=== PATIENT | female | born 1930 | race Caucasian/White ===

== ENCOUNTER 2017-04-25 23:50 | Emergency (ER) | payer MEDICARE, OTHER ==
[~2017-04-25] VITALS: Ht 162.6 cm; Wt 49.3 kg
[~2017-04-25 23:50] MED LIST: ANUCORT HC25 MG REC; BENTYL 10MG10 MG/CAP PO; BENTYL 20MG TAB20 MG PO; BIAXIN 500MG T500 MG PO; CIPRO 500MG TA500 MG PO; COUMADIN 22.5 MG/TAB; COUMADIN 22.5 MG/TAB PO; COUMADIN 4MG4 MG/TAB PO; COUMADIN 5MG5 MG/TAB PO; FLAGYL500 MG PO; GAVISCON500 MG PO; KAPIDEX; LISINOPRIL20 MG PO; MAALOX ANTACID1 TAB PO; MULTAQ400 MG PO; NEXIUM 40MG40 MG PO; PRILOSEC 20MG20 MG PO; PRILOSEC10 MG PO; PRINIVIL5 MG PO; PRINZIDE 12.5 M1 TA1 PO; PROMETHAZINE12.5 M5 PO; TOPROL XL 25MG25 MG PO; ULTRAM 50MG TAB50 MG PO; ZESTRIL 20MG TA20 MG PO; ZOCOR 40MG40 MG PO; ZOCOR40 MG PO; ZOFRAN 4MG T4 MG/TAB PO; ZOFRAN ODT4 MG PO; ZOVIRAX400 MG PO
[2017-04-25 23:53] VITALS: TEMP 97.4
[2017-04-26] MEDS ORDERED: FLAGYL500 MG PO (00:31)
[2017-04-26] MEDS ORDERED: LIPITOR 10MG10 MG PO (00:31)
[2017-04-26 00:33] LABS: BASO # 0.1 (0.0-0.2); BASO % 0.8 % (0.0-2.0); EOS # 0.1 (0.0-0.7); EOS % 0.8 % (0-4.0); GRAN # 4.5 (1.4-6.5); GRAN % 60.9 % (42.2-75.2); HEMATOCRIT 42.3 % (37.0-47.0); HEMOGLOBIN 14.4 g/dl (12.5-16.0); LYMPH # 2.1 (1.2-3.4); LYMPH % 28.4 % (20.0-51.0); MEAN CELL VOLUME 89 fl (80.0-100.0); MEAN CORPUSCULAR HEMOGLOBIN 30 pg (27.0-31.0); MEAN CORPUSCULAR HGB CONC 34 g/dl (33.0-37.0); MEAN PLATELET VOLUME 8.6 fl (7.4-10.4); MONO # 0.6 (0.1-0.6); MONO % 8.7 % (1.7-9.3); PLATELET COUNT 276 K/mm3 (130-400); RED BLOOD COUNT 4.77 M/mm3 (4.10-5.30); REDCELL DISTRIBUTION WIDTH-CV 13.8 % (11.5-14.5); WHITE BLOOD COUNT 7.3 K/mm3 (4.8-10.8)
[2017-04-26 00:42] LABS: INR 1.7 (0.8-3.0); PROTHROMBIN TIME 19.7 SECONDS (9.7-12.8)
[2017-04-26 00:45] LABS: ADJUSTED CALCIUM 9.3 mg/dL (8.4-10.2); ALANINE AMINOTRANSFERASE 37 U/L (9-52); ALBUMIN 4.3 gm/dL (3.5-5.0); ALKALINE PHOSPHATASE 85 U/L (50-136); ANION GAP 11 mmol/L (7-16); BILIRUBIN,TOTAL 0.9 mg/dL (0.0-1.0); BLOOD UREA NITROGEN 18 mg/dL (7-17); C-REACTIVE PROTEIN < 0.5 mg/dL (0.0-0.9); CALCIUM 9.5 mg/dL (8.4-10.2); CARBON DIOXIDE 22 mmol/L (22-30); CHLORIDE 99 mmol/L (98-107); CREATININE, serum 1.07 mg/dL (0.52-1.25); GLUCOSE 90 mg/dL (74-106); LIPASE 103 U/L (23-300); POTASSIUM 3.6 mmol/L (3.4-5.0); SODIUM 131 mmol/L (137-145); TOTAL PROTEIN 7.4 gm/dL (6.4-8.2)
[2017-04-26] MEDS ORDERED: ATIVAN 0.50.5 MG/TAB PO (01:35)
[2017-04-26 02:06] VITALS: BP 138/72; PULSE 72
== END 2017-04-26 02:07 | disposition home or self-care (01) ==
LOC: COL.ER 23:50
PROVIDERS: Emergency Medicine
DX: R10.9 Unspecified abdominal pain (principal); I48.91 Unspecified atrial fibrillation; Z79.01 Long term (current) use of anticoagulants; Z87.19 Personal history of other diseases of the digestive system; Z90.49 Acquired absence of other specified parts of digestive tract
CPT/HCPCS: J2060; J2405; J7030; Q9967

== ENCOUNTER 2017-05-01 10:08 | Emergency (ER) | payer MEDICARE, OTHER ==
[~2017-05-01] VITALS: Ht 162.6 cm; Wt 48.2 kg
[~2017-05-01 10:08] MED LIST changes: +ATIVAN 0.50.5 MG/TAB PO; +LIPITOR 10MG10 MG PO
[2017-05-01 10:09] VITALS: TEMP 97.5
[2017-05-01 11:00] LABS: BASO % 0.6 % (0.0-2.0); EOS % 0.2 % (0-4.0); GRAN # 4.6 (1.4-6.5); GRAN % 71.9 % (42.2-75.2); HEMATOCRIT 44.2 % (37.0-47.0); HEMOGLOBIN 15.5 g/dl (12.5-16.0); LYMPH # 1.2 (1.2-3.4); LYMPH % 18.2 % (20.0-51.0); MEAN CELL VOLUME 86 fl (80.0-100.0); MEAN CORPUSCULAR HEMOGLOBIN 30 pg (27.0-31.0); MEAN CORPUSCULAR HGB CONC 35 g/dl (33.0-37.0); MEAN PLATELET VOLUME 9.4 fl (7.4-10.4); MONO # 0.6 (0.1-0.6); MONO % 8.6 % (1.7-9.3); PLATELET COUNT 225 K/mm3 (130-400); RED BLOOD COUNT 5.14 M/mm3 (4.10-5.30); REDCELL DISTRIBUTION WIDTH-CV 12.9 % (11.5-14.5); WHITE BLOOD COUNT 6.4 K/mm3 (4.8-10.8)
[2017-05-01 11:09] LABS: ADJUSTED CALCIUM 9.3 mg/dL (8.4-10.2); ALANINE AMINOTRANSFERASE 33 U/L (9-52); ALBUMIN 4.4 gm/dL (3.5-5.0); ALKALINE PHOSPHATASE 56 U/L (50-136); ANION GAP 13 mmol/L (7-16); BILIRUBIN,TOTAL 1.1 mg/dL (0.0-1.0); BLOOD UREA NITROGEN 14 mg/dL (7-17); CALCIUM 9.6 mg/dL (8.4-10.2); CARBON DIOXIDE 22 mmol/L (22-30); CREATININE, serum 1.06 mg/dL (0.52-1.25); GLUCOSE 94 mg/dL (74-106); SODIUM 125 mmol/L (137-145); TOTAL PROTEIN 7.4 gm/dL (6.4-8.2)
[2017-05-01 11:18] LABS: TROPONIN-I 0.013 ng/mL (0.000-0.034)
[2017-05-01 11:20] LABS: C-REACTIVE PROTEIN < 0.5 mg/dL (0.0-0.9); CHLORIDE 89 mmol/L (98-107)
[2017-05-01 11:36] LABS: PH 6 (5-8); SQUAMOUS EPITHELIAL None Seen /hpf; URINE BACTERIA Rare /hpf; URINE BILIRUBIN Negative (NEGATIVE); URINE BLOOD 1+ (NEGATIVE); URINE COLOR Yellow; URINE GLUCOSE Negative (NEGATIVE); URINE KETONE 1+ (NEGATIVE); URINE UROBILINOGEN Negative (NEGATIVE)
[2017-05-01 11:37] LABS: URINE APPEARANCE Hazy
[2017-05-01 12:11] LABS: PROTHROMBIN TIME 35.1 SECONDS (9.7-12.8)
[2017-05-01] MEDS ORDERED: OMNICEF 300MG300 MG PO (13:12)
[2017-05-01] MEDS ORDERED: PRINIVIL20 MG PO (13:12)
[2017-05-01] MEDS ORDERED: ZOFRAN 4MG T4 MG/TAB PO (13:12)
[2017-05-01 14:03] VITALS: BP 157/86; PULSE 78
== END 2017-05-01 13:53 | disposition home or self-care (01) ==
LOC: COL.ER 10:08
PROVIDERS: Emergency Medicine
DX: N39.0 Urinary tract infection, site not specified (principal); E87.1 Hypo-osmolality and hyponatremia; R55 Syncope and collapse; I10 Essential (primary) hypertension; Z79.1 Long term (current) use of non-steroidal anti-inflammatories (NSAID); Z79.01 Long term (current) use of anticoagulants; Z96.0 Presence of urogenital implants
CPT/HCPCS: J2405; J7030

== ENCOUNTER → 2018-03-14 | Outpatient (CLI) | payer MEDICARE ==
[~2018-03-14] MED LIST changes: +OMNICEF 300MG300 MG PO; +PRINIVIL20 MG PO
== END ==
LOC: COL.RAD 09:29
DX: K86.2 Cyst of pancreas (principal)
CPT/HCPCS: Q9967